=== PATIENT | female | born 1945 | race Caucasian/White ===

== ENCOUNTER → 2023-10-21 10:10 | Outpatient (REF) | payer MEDICARE, OTHER, SELFPAY ==
[2023-10-21 10:53] LABS: % Basophils 0.5 % (0-2); % Eosinophils 1.4 % (0-6); % Immature Granulocytes 0.3 % (0-0.5); % Lymphocytes 26.4 % (20.5-51.1); % Monocytes 7.9 % (1.7-9.3); % Neutrophils 63.5 % (42.2-75.2); Absolute Eosinophils 0.1 10^3/uL (0-0.7); Absolute Monocytes 0.6 10^3/uL (0.1-0.6); Absolute Neutrophils 4.9 10^3/uL (1.4-6.5); Hematocrit 46.8 % (37.0-47.0); Hemoglobin 15.6 g/dL (12.0-16.0); Mean Corp Hgb Conc. 33.3 g/dL (33.0-37.0); Mean Corpuscular Hgb 30.8 pg (27.0-31.0); Mean Corpuscular Volume 92.3 fL (81.0-99.0); Mean Platelet Volume 8.8 fL (7.4-10.4); Nucleated Red Blood Cells % 0 %; Platelet Count 240 10^3/uL (130-400); Red Blood Cell Count 5.07 10^6/uL (4.20-5.40); Red Cell Dist. Width 12.9 % (11.5-14.5); White Blood Cell Count 7.7 10^3/uL (4.8-10.8)
[2023-10-21 11:34] LABS: ALT (SGPT) 16 U/L (0-35); AST (SGOT) 24 U/L (14-36); Albumin 4.2 g/dl (3.5-5.0); Alkaline Phosphatase 63 U/L (38-126); Blood Urea Nitrogen 21 mg/dl (7-17); Calcium 9.7 mg/dl (8.4-10.2); Carbon Dioxide 32 mmol/L (22-30); Chloride 101 mmol/L (98-107); Glucose 82 mg/dl (70-99); HDL Cholesterol 81 mg/dl; LDL Cholesterol, Calculated 122 mg/dl; Potassium 3.9 mmol/L (3.5-5.1); Sodium 142 mmol/L (135-145); Total Bilirubin 1.2 mg/dl (0.2-1.3); Total Cholesterol 220 mg/dl (50-199); Total Protein 7.4 g/dl (6.3-8.2); Triglyceride 85 mg/dl (10-149); Very Low Density Lipoprotein 17 mg/dl (0-30); eGFR > 60.00
[2023-10-21 11:42] LABS: Free T4 1.31 ng/dl (0.78-2.19)
[2023-10-21 11:56] LABS: TSH 1.21 uIU/ml (0.47-4.68)
== END ==
LOC: REG 10:10
PROVIDERS: ATTENDING PHYSICIAN Family Medicine
DX: E03.9 Hypothyroidism, unspecified (principal); I10 Essential (primary) hypertension; R41.3 Other amnesia
CPT/HCPCS: 36415; 80053; 80061; 84439; 84443; 85025

== ENCOUNTER 2023-12-30 15:41 | Inpatient (IN) | payer MEDICARE, OTHER, SELFPAY ==
[2023-12-30] VITALS (8 sets, daily range): BP systolic 98–148; BP diastolic 55–87; BMI 30.6
[2023-12-30 13:17] LABS: % Basophils 0.5 % (0-2); % Eosinophils 0.9 % (0-6); % Immature Granulocytes 0.3 % (0-0.5); % Lymphocytes 36.2 % (20.5-51.1); % Monocytes 6.3 % (1.7-9.3); % Neutrophils 55.8 % (42.2-75.2); Absolute Eosinophils 0.1 10^3/uL (0-0.7); Absolute Lymphocytes 2.1 10^3/uL (1.2-3.4); Absolute Monocytes 0.4 10^3/uL (0.1-0.6); Absolute Neutrophils 3.2 10^3/uL (1.4-6.5); Hematocrit 29.7 % (37.0-47.0); Hemoglobin 9.9 g/dL (12.0-16.0); Mean Corp Hgb Conc. 33.3 g/dL (33.0-37.0); Mean Corpuscular Hgb 31.6 pg (27.0-31.0); Mean Corpuscular Volume 94.9 fL (81.0-99.0); Mean Platelet Volume 8.9 fL (7.4-10.4); Nucleated Red Blood Cells % 0 %; Platelet Count 289 10^3/uL (130-400); Red Blood Cell Count 3.13 10^6/uL (4.20-5.40); Red Cell Dist. Width 14.4 % (11.5-14.5); White Blood Cell Count 5.8 10^3/uL (4.8-10.8)
[2023-12-30 13:30] LABS: ALT (SGPT) 11 U/L (0-35); AST (SGOT) 20 U/L (14-36); Albumin 3.7 g/dl (3.5-5.0); Alkaline Phosphatase 50 U/L (38-126); Blood Urea Nitrogen 13 mg/dl (7-17); Calcium 9.3 mg/dl (8.4-10.2); Carbon Dioxide 26 mmol/L (22-30); Chloride 105 mmol/L (98-107); Glucose 87 mg/dl (70-99); Lipase 77 U/L (23-300); Potassium 3.8 mmol/L (3.5-5.1); Sodium 138 mmol/L (135-145); Total Bilirubin 0.8 mg/dl (0.2-1.3); Total Protein 6.5 g/dl (6.3-8.2); eGFR > 60.00
--- NOTE | 2023-12-30 14:32 | ED.GENMED ---
History of Present Illness
General
Chief Complaint: Abdominal Pain
Source: patient
Time Seen by Provider: 12/30/23 14:20
Travel History
Have you had any contact with someone who has COVID-19?: No
Do you have any symptoms of coronavirus? Fever > 100 degrees, chills, cough, shortness of breath, sore throat, loss of taste or smell, muscle aches, or headache?: No
History of Present Illness
History of Present Illness:
78-year-old female with past medical history of hypertension, hyperlipidemia presenting to the emergency department for evaluation of abdominal pain that has been ongoing for 1 week described to be mainly in the upper part of her abdomen but
radiating downwards into the lower part of her abdomen, seen by primary care provider last week who is treating patient with Macrobid for possible urinary tract reports she did not have any relief with this. She went back to the primary care
provider to be evaluated today and provided a stool sample. Patient notes that her stool yesterday started to look black in color which she did not have before. Patient denies any fevers, chills, rigors, nausea or vomiting. She denies any history
of GI bleeding in the past. She does not take any blood thinning medications, chronic NSAIDs, no history of alcohol use. She does not believe she is ever had an endoscopy before. Patient has no other concerns.
Past History
Past History
ED Past Medical History: HTN and Hypercholesterolemia; Negative IDDM or NIDDM
ED Past Surgical History: and Orthopedic; Negative Cardiac
Patient has exhibited threatening behavior?: No
PSI?: No
Social History
Tobacco: Non-smoker
Alcohol: None
Drug: None
Personal:
Living: with family
Employment: Retired
Family History
Family History: Hypertension
Review of Systems
Review of Systems
All Other Systems: ROS reviewed and negative except as documented in HPI and ROS
Phy Exam
Physical Exam
Physical Exam:
GENERAL: Alert , anxious, tearful and upset
EYE: clear conjunctiva b/l
HEAD: NCAT
ENT: o/p clr, mmm.
CARDIAC: Regular rate and rhythm .
LUNGS: Clear breath sounds bilaterally, no acute respiratory distress, no wheezes/rales/rhonchi
ABDOMEN: Soft, mildly tender within the epigastrium, no r/g, no cvat
Rectal exam: Chaperoned by ED LINH Guillermo: Light black stool, heme positive
NEUROLOGICAL: Alert and oriented
SKIN: Warm and dry, skin intact.
MUSCULOSKELETAL: well perfused.
PSYCH: Normal and appropriate interaction.
Scores
Heart Failure Risk
Heart Failure Risk Score: Not Applicable
Heart Score for Chest Pain Patients
STEMI patient?: Not applicable
Withdrawal Assessment of Alcohol
Withdrawal Assessment Completed?: Not applicable
Course
Orders/Labs/Results
Orders:
Orders
12/30/23 12:48
Electrocardiogram (*1) Urgent
Reason for Study: Abdominal Pain
EKG- Treatment ONCE
12/30/23 12:56
Type+Screen Urgent
CMP [Comprehensive Metabolic Panel] Urgent
Complete Blood Count/With Diff Urgent
Lipase Urgent
12/30/23 14:31
IV Insert/Care/Rem.- Treatment PRN
Pantoprazole 80 mg/100 ml Nss [Protonix] 80 mg in 100 ml IV NOW
Pantoprazole [Protonix IV] 80 mg IV NOW STA
12/30/23 15:12
Admit/Transfer Patient As Directed
Co-Sign Provider:
Level of Care: Inpatient admission
Assign to:: Telemetry
Physician / Group: clark
Diagnosis: Gi blled
Reason for Telemetry: Other
Other Reason for Telemetry: GI bleed
Date to Stop Telemetry: 01/01/24
Time to Stop Telemetry: 11:00
Reason for Hospitalization: GI bleed
Expected length of stay greater than two midnights?: Yes
ELOS- Estimated Length of Stay in days: 3
I certify the patient meets the requirements for IP care: Yes
12/30/23 15:13
Code Status As Directed
Resuscitation Status: Full Code
01/01/24 11:00
DC Protocol for Telemetry ONCE
Abnormal Lab Results
12/30/23
12:56
RBC 3.13 L 10^6/uL
(4.20-5.40)
Hgb 9.9 L g/dL
(12.0-16.0)
Hct 29.7 L %
(37.0-47.0)
MCH 31.6 H pg
(27.0-31.0)
12/30/23 12:56
12/30/23 12:56
Vital Signs
Initial and Last Documented VS:
Initial Vital Signs
Temp Pulse Resp BP Pulse Ox
98.3 F 68 18 109/87 100
12/30/23 12:43 12/30/23 12:43 12/30/23 12:43 12/30/23 12:43 12/30/23 12:43
Last Documented Vital Signs
Temp Pulse Resp BP Pulse Ox
98.3 F 71 17 98/85 100
12/30/23 12:43 12/30/23 15:00 12/30/23 15:15 12/30/23 15:00 12/30/23 14:45
MDM/Problems Addressed
Differential Diagnosis Includes:
GI bleed, anemia, electrolyte disturbance, less concern for an acute surgical complication, mesenteric ischemia
MDM/Problems Addressed:
16 [id number] female presenting to the emergency department for evaluation of abdominal pain, black stool and generally feeling unwell over the last week. On arrival here patient has a noted hemoglobin drop from 15.6-9.9. She has dark stool
that is heme positive. I suspect an upper GI bleed is the reasoning behind her symptoms. No clear source for why she would have this. 2 IVs were started, Protonix bolus and drip ordered. At present time patient does not need any transfusion.
Plan to admit to hospitalist team. Will also notify primary care provider
*Pulse Oximetry
Patient hypoxic: no
*Resident Services Supervisor Interpretation
Rate: normal
Rhythm: sinus
*Critical Care Note
Total Time (30-74mins, 75-104mins- exclusive of procedures): Not Applicable
Data Reviewed
Review of Other/Old Records Reveals: Labs and Records
Source: patient and records
Patient Management
Discussion with other providers: Hospitalist and PCP
Escalation/DeEscalation of care consider admission/obs:
Hospitalist team was notified and accepts for continued evaluation and treatment. Primary care was also notified and is aware.
ED Attending Note
-
Portions of this chart may have been created with voice recognition software.� Occasional wrong word or��sound alike� substitutions may have occurred due to the inherent limitations of voice recognition software.
Discharge Plan
Departure
Patient Disposition: Admit
Date of Disposition: 12/30/23
Time of Disposition: 14:39
Presentation/result/management discussed w/ accepting MD/DO: Hospitalist
Discharge Problem:
GI bleed, Anemia
Prescriptions:
No Action
levothyroxine 25 MCG tablet
25 mcg PO DAILY
latanoprost 1 DROP drops
1 drp BOTH EYES HS
magnesium oxide 400 MG tablet
400 mg PO DAILY
cyanocobalamin (vitamin B-12) 1,000 mcg Tablet
1,000 mcg PO DAILY
calcium carbonate [Calcium 500] 500 mg calcium (1,250 mg) Tablet
500 mg PO DAILY
ibuprofen [Advil] 200 mg Tablet
400 mg PO Q6HPRN PRN (Reason: mild pain)
memantine 5 mg Tablet
5 mg PO DAILY
zinc sulfate 50 mg zinc (220 mg) Capsule
50 mg PO DAILY
Visbiome 112.5 billion cell Capsule
1 cap PO DAILY
turmeric 400 mg Capsule
400 mg PO DAILY
Referrals:
Dwaine Pelaez MD [Family Provider] -
Interventions
Interventions:
*Risk Screen - Suicide Last Done: 12/30/23 15:01
*General Assessment Last Done: 12/30/23 12:43
*Neglect/Abuse Screening Last Done: 12/30/23 15:01
ED- Fall Risk Assessment Last Done: 12/30/23 15:01
*ED COVID-19 Vaccine History Last Done: 12/30/23 12:43
MK-Waliaa-Thdzyvauoz Assessment Last Done: 12/30/23 14:48
Discharge Date and Time
Print Language: MALTESE
[2023-12-30] MEDS: PROTONIX IV 80 MG IV (14:39)
[2023-12-30] MEDS: PROTONIX 100 IV (14:42)
--- NOTE | 2023-12-30 14:48 | HPS.HSE ---
Addendum entered and electronically signed by Nikhil Cheek MD 12/30/23 15:50:
Seen and examined by me independently in collaboration with the nurse practitioner Aamir.
Past medical history/social history/medication/allergies reviewed.
Lab data and imaging data reviewed.
Patient with a current history of treatment of possible UTI with Macrobid presents with upper abdominal pain for a week followed by black stools. She is heme positive black stools in the ER. She is anemic compared to her labs from before. She is
tender in the epigastric area ;no hepatomegaly.LFTs and lipase normal.
Denies any NSAID use. Denies prior history of peptic ulcer disease or GI bleed.
She is currently hemodynamically stable.
Admit to hospital. Keep NPO. Start on IV Protonix drip. Consult GI.Follow H&H closely. Repeat urinalysis to make sure she cleared her UTI.
Patient takes dementia medication but she is alert and oriented to place and the month of the year. She still drives and in fact drove herself to the hospital.Didnt check full MMSE today.
Original Note:
Family Physician
-
Family Physician: Dwaine Pelaez
Chief Complaint
-
abdominal pain associated with black stool
History of Present Illness
78 year old with PMH fot HTN, HLD, heart murmur, hypothyroidism, CVA, memory disorder presented to us with abdominal pain for two weeks. patient was prescribed some medication twice daily for 7 days. Patient started seeing black stools. She was
evaluated by PCP yesterday for follow-up. Patient was continued to have generalized abdominal pain. Denied nausea vomiting diarrhea. Patient denied any headache, dizziness, syncopal episode patient denied fever, chills, chest pain,. Short of
breath. Patient denied dysuria hematuria.
On arrival hemoglobin 9.9. Heme test positive for black stools. Patient initiated on IV Protonix. Admitted for further management
Medical History
Past Medical History
Past Medical History: Reports Other
Additional Past Medical History:
Hypertension
Hyperlipidemia
Heart murmur
Hypothyroidism
CVA
Adjustment disorder
Memory disorder
Mild cognitive impairment
Retinal vasculitis of both eyes
Past Surgical History: Reports Other
Additional Past Surgical History:
Tonsillectomy
Carpal tunnel surgery
Appendectomy
Laminectomy
Social History
Tobacco: Non-smoker
Alcohol: None
Drug: None
Family History
Family History: Not pertinent
Allergies / Home Medications
Allergies reflects when Allergies were last updated in [facility].
Home Medications with original date entered in [facility]
Allergy/Medication List:
Allergies
Allergy/AdvReac Type Severity Reaction Status Date / Time
Sulfa (Sulfonamide Allergy Hives Verified 12/30/23 12:47
Antibiotics)
[Sulfa(Sulfonamide
Antibiotics)]
Home Medications
levothyroxine 25 mcg tablet 25 mcg PO DAILY 10/31/21
latanoprost 0.005 % eye drops 1 drp BOTH EYES HS 11/27/21
magnesium oxide 400 mg PO DAILY 12/16/21
Lactobac no.2-Bifidobac no.1-S. thermo 112.5 billion cell capsule (Visbiome) 1 cap PO DAILY 12/30/23
calcium carbonate 500 mg PO DAILY 12/30/23
cyanocobalamin (vitamin B-12) 1,000 mcg tablet 1,000 mcg PO DAILY 12/30/23
ibuprofen 200 mg tablet (Advil) 400 mg PO Q6HPRN PRN mild pain 12/30/23
memantine 5 mg tablet 5 mg PO DAILY 12/30/23
turmeric 400 mg capsule 400 mg PO DAILY 12/30/23
zinc sulfate 50 mg zinc (220 mg) capsule 50 mg PO DAILY 12/30/23
Review of Systems
-
Constitutional: Reports No Symptoms
EENT: Reports No Symptoms
Respiratory: Reports No Symptoms
Cardiac: Reports No Symptoms
Abdomen/GI: Reports Abdominal Pain and Black Stools
: Reports No Symptoms
Musculoskeletal: Reports No Symptoms
Skin: Reports No Symptoms
Neurological: Reports No Symptoms
Endocrine: Reports No Symptoms
Hematologic/Lymphatic: Reports No Symptoms
Psych: Reports No Symptoms
Physical Exam
Vital Signs
Vital Signs
Temp Pulse Resp BP Pulse Ox
98.3 F 72 16 148/59 100
12/30/23 12:43 12/30/23 14:45 12/30/23 14:45 12/30/23 14:35 12/30/23 14:45
Physical Exam
General: Well Developed, Well Nourished and No Apparent Distress
HEENT: NormoCephalic, Moist mucous membranes and Atraumatic
Respiratory: Clear
Cardiac: S1/S2 and Regular Rhythm; No Murmur or Rub
GI: Soft, Non Tender, Non Distended and Normal Bowel Sounds; No Organomegaly
Rectal: Deferred by Provider
Musculoskeletal: No Clubbing, No Cyanosis and No Edema
Skin: No Rash
Neuro: AO x 3 and Nonfocal/grossly intact
Psych: Calm
Laboratory Results
-
12/30/23 12:56
12/30/23 12:56
Laboratory Results
Total Bilirubin 0.8 mg/dl (0.2-1.3) 12/30/23 12:56
AST 20 U/L (14-36) 12/30/23 12:56
ALT 11 U/L (0-35) 12/30/23 12:56
Alkaline Phosphatase 50 U/L (38-126) 12/30/23 12:56
Lipase 77 U/L (23-300) 12/30/23 12:56
Data Reviewed
-
Lab Data: Labs Reviewed by me
Impression/Plan
-
# Abdominal pain associated with black stool /acute blood loss anemia likely from upper GI bleed
-Heme positive light black stool
-Hemoglobin 9.9
-trend h&h
-IV Protonix
-npo
-GI consult
-Colonoscopy 07/24 with impression of ileum was normal.
- Five 1 to 2 mm polyps in the transverse colon, in
the ascending colon and in the cecum, removed with a
jumbo cold forceps. Resected and retrieved.
- Diverticulosis in the sigmoid colon.
- Internal hemorrhoids.
# Hypothyroidism
-Levothyroxine continued
# Mild cognitive impairment
# Memory loss
-Memantine continued
# DVT prophylaxis
-SCD
# CODE STATUS
-Full code
[2023-12-30 20:26] LABS: Hemoglobin 10.8 g/dL (12.0-16.0)
--- NOTE | 2023-12-30 20:50 | CON.GI ---
Consultation
-
Date/Time Consultation Requested: 12/30/23
Date/Time Consultation Performed: 12/30/23
Requesting Provider: Dr. Cheek
Performing Provider:
Reason for Consultation: melena, anemia
Medical History
Chief Complaint / HPI
Chief Complaint: melena, fatigue
History of Present Illness:
This is a pleasant 78-year-old female with past medical history of PUD, colon polyps, hypertension hyperlipidemia, heart murmur, hypothyroidism, CVA, mild dementia who recently was having symptoms of UTI was seen by her PCP and started on Macrobid.
She says that she was also having lower abdominal pain and epigastric pain with fatigue for past 1 week and a couple of days ago she had an episode of black stool. She had reported this to her PCP yesterday and was told to submit a stool Hemoccult
card she submitted the card in the office but was still feeling fatigue and presented to the emergency room and was noted to have a hemoglobin of 9.9 down from 15.6 on 10/21/2023. She says that she has been taking Phani aspirin as needed for joint
pains but denies any other NSAID use. She does have a prior history of peptic ulcer disease and was seen Dr. Arias and had endoscopy in 2012 and 2013. Her last colonoscopy was on 07/02/[address] Jurado.
Past Medical History
Past Medical History: Other (Hypertension, Hyperlipidemia, Heart murmur, Hypothyroidism, CVA, Adjustment disorder, Memory disorder, Mild cognitive impairment, Retinal vasculitis of both eyes )
Past Surgical History: Other (onsillectomy, , Carpal tunnel surgery, Appendectomy, Laminectomy)
Social History
Tobacco: Non-Smoker
Alcohol: None
Drug: None
Family History
Family History: Reviewed & Not Pertinent
Allergies / Home Medications
Allergy/AdvReac Type Severity Reaction Status Date / Time
Sulfa (Sulfonamide Allergy Hives Verified 12/30/23 12:47
Antibiotics)
[Sulfa(Sulfonamide
Antibiotics)]
�Medication �Instructions �Recorded
levothyroxine 25 mcg tablet 25 mcg PO DAILY 10/31/21
latanoprost 0.005 % eye drops 1 drp BOTH EYES HS 11/27/21
magnesium oxide 400 mg PO DAILY 12/16/21
Lactobac no.2-Bifidobac no.1-S. 1 cap PO DAILY 12/30/23
thermo 112.5 billion cell capsule
(Visbiome)
calcium carbonate 500 mg PO DAILY 12/30/23
cyanocobalamin (vitamin B-12) 1,000 mcg PO DAILY 12/30/23
1,000 mcg tablet
ibuprofen 200 mg tablet (Advil) 400 mg PO Q6HPRN PRN mild pain 12/30/23
memantine 5 mg tablet 5 mg PO DAILY 12/30/23
turmeric 400 mg capsule 400 mg PO DAILY 12/30/23
zinc sulfate 50 mg zinc (220 mg) 50 mg PO DAILY 12/30/23
capsule
Review of Systems
-
All other systems: A 12 pt ROS was Negative except as stated above in HPI
Vital Signs
Temp Pulse Resp BP Pulse Ox
98.3 F 68 14 144/55 97
12/30/23 12:43 12/30/23 18:15 12/30/23 18:15 12/30/23 18:00 12/30/23 18:15
Physical Exam
Exam
General: No Apparent Distress
HEENT: Normocephalic
Respiratory: Clear
Cardiac: S1/S2 and Murmur (systolic murmur)
GI: Soft, Non Distended, Normal Bowel Sounds and Tender (epigastric)
Musculoskeletal: No Clubbing
Skin: Warm
Neuro: Awake, Alert and Oriented
Psych: Calm
Results
WBC 5.8 10^3/uL (4.8-10.8) 12/30/23 12:56
Hgb 10.8 g/dL (12.0-16.0) L 12/30/23 20:16
Hct 31.0 % (37.0-47.0) L 12/30/23 20:16
MCV 94.9 fL (81.0-99.0) 12/30/23 12:56
Plt Count 289 10^3/uL (130-400) 12/30/23 12:56
Absolute Neuts (auto) 3.2 10^3/uL (1.4-6.5) 12/30/23 12:56
Sodium 138 mmol/L (135-145) 12/30/23 12:56
Potassium 3.8 mmol/L (3.5-5.1) 12/30/23 12:56
Chloride 105 mmol/L (98-107) 12/30/23 12:56
Carbon Dioxide 26 mmol/L (22-30) 12/30/23 12:56
BUN 13 mg/dl (7-17) 12/30/23 12:56
Creatinine 0.6 mg/dL (0.6-1.0) 12/30/23 12:56
Calcium 9.3 mg/dl (8.4-10.2) 12/30/23 12:56
Total Bilirubin 0.8 mg/dl (0.2-1.3) 12/30/23 12:56
AST 20 U/L (14-36) 12/30/23 12:56
ALT 11 U/L (0-35) 12/30/23 12:56
Alkaline Phosphatase 50 U/L (38-126) 12/30/23 12:56
Lipase 77 U/L (23-300) 12/30/23 12:56
Diagnostic Image Results:
Prior GI Procedures:
EGD: 10/10/2013 Impression: - Normal esophagus.
- Normal stomach. Biopsied.
- Duodenal deformity. Biopsied.
Colonoscopy: Impression: - The examined portion of the ileum was normal.
- Five 1 to 2 mm polyps in the transverse colon, in
the ascending colon and in the cecum, removed with a
jumbo cold forceps. Resected and retrieved.
- Diverticulosis in the sigmoid colon.
- Internal hemorrhoids.
Assessment / Plan
-
1. Acute blood loss anemia with melena a few days prior to admission with epigastric discomfort most likely has peptic ulcer disease versus esophagitis or gastritis she does take a Phani aspirin as needed but denies excessive recent use of NSAIDs.
Will schedule her for endoscopy tomorrow she says her last episode of black stool was about 4 to 5 days ago. She has been on started on Protonix drip continue to monitor hemoglobin if she has any active bleeding endoscopy sooner.
-
-
Thank you for consultation and allowing me to participate in the patient's care. Please call the communications department chairperson GI physician during the after hours with any questions or concerns.
[2023-12-30] MEDS: NSS 1000 IV (22:09)
[2023-12-30] MEDS: XALATAN OPHTHALMIC SOLUTION 1 DROP BOTH EYES (22:11)
[2023-12-31] VITALS (7 sets, daily range): BP systolic 118–158; BP diastolic 51–74
[2023-12-31] MEDS: PROTONIX 100 IV (01:30)
[2023-12-31] MEDS: SYNTHROID PO (06:16)
[2023-12-31 06:47] LABS: Hemoglobin 9.5 g/dL (12.0-16.0); Mean Corp Hgb Conc. 33.9 g/dL (33.0-37.0); Mean Corpuscular Hgb 31.7 pg (27.0-31.0); Mean Corpuscular Volume 93.3 fL (81.0-99.0); Mean Platelet Volume 8.7 fL (7.4-10.4); Platelet Count 251 10^3/uL (130-400); Red Cell Dist. Width 14.6 % (11.5-14.5); White Blood Cell Count 4.5 10^3/uL (4.8-10.8)
[2023-12-31 06:55] LABS: Blood Urea Nitrogen 11 mg/dl (7-17); Calcium 8.8 mg/dl (8.4-10.2); Carbon Dioxide 24 mmol/L (22-30); Chloride 111 mmol/L (98-107); Estimated Creatinine Clearance 70 ml/min; Glucose 82 mg/dl (70-99); Sodium 141 mmol/L (135-145); eGFR > 60.00
[2023-12-31 07:01] LABS: Potassium 3.5 mmol/L (3.5-5.1)
[2023-12-31] MEDS: MAG-TAB SR 84 MG PO (07:41)
[2023-12-31] MEDS: NAMENDA 5 MG PO (07:41)
[2023-12-31] MEDS: NSS 1000 IV ×2 (07:44→22:05)
--- NOTE | 2023-12-31 11:19 | W.PN.HOSP.TC ---
Today's Communication/Plan
-
EGD
DC planning based on EGD findings
Assessment / Plan
Assessment / Plan
# Abdominal pain associated with black stool /acute blood loss anemia likely from upper GI bleed
-Heme positive light black stool
-Hemoglobin Stable since admission
-trend h&h
-cw IV Protonix
- For EGD today
-Colonoscopy 07/24 with impression of ileum was normal.
- Five 1 to 2 mm polyps in the transverse colon, in
the ascending colon and in the cecum, removed with a
jumbo cold forceps. Resected and retrieved.
- Diverticulosis in the sigmoid colon.
- Internal hemorrhoids.
# Hypothyroidism
-Levothyroxine continued
# Mild cognitive impairment
# Memory loss
-Memantine continued
# DVT prophylaxis
-SCD
# CODE STATUS
-Full code
Anticipated Discharge: Today
Subjective/Interval History
-
Date of Service: December 31, 2023
somewhat improved abdominal pain. No nausea vomiting.
Objective Data
-
Labs:
Laboratory Results
12/31/23 12/31/23
06:16 13:00
WBC 4.5 L
Hgb 9.5 L Pending
Hct 28.0 L Pending
Plt Count 251
Sodium 141
Potassium 3.5
Chloride 111 H
Carbon Dioxide 24
BUN 11
Creatinine 0.7
Glucose 82
Calcium 8.8
Vital Signs:
Vital Signs
Temp Pulse Resp BP Pulse Ox
98.4 F 65 16 133/61 99
12/31/23 08:27 12/31/23 08:27 12/31/23 08:27 12/31/23 08:27 12/31/23 08:27
Review of Systems
-
Respiratory: Denies Trouble Breathing
Cardiac: Denies Chest Pain
Neuro: Denies Dizzy
Physical Exam
-
General: No Apparent Distress
Cardiac: Regular Rhythm and S1/S2
GI: Soft, Nondistended, Normal Bowel Sounds and Tender (Mild epigastric area tenderness without rebound or guarding.)
Neuro: Awake, Alert and Oriented
Psych: Calm and Confused (mild - she seems to have issues in remembering recent health issues )
Data Reviewed
-
Labs: Labs Reviewed by me
[2023-12-31] MEDS: PROTONIX IV (11:55)
[2023-12-31 13:08] LABS: Hematocrit 28.9 % (37.0-47.0); Hemoglobin 10.2 g/dL (12.0-16.0)
--- NOTE | 2023-12-31 14:26 | CM ---
Met with patient at bedside; initial assessment and case management consult completed
Pharmacy verified: [facility]
Signed IMM on the chart
Patient reported she lives alone; multilevel home; 1 step to enter; 10 steps between floors; inside railings on stairs; powder room on the 1st floor; 2nd floor bath has walk-in shower, grab bar, and seat
PLOF: patient reported she is independent with ambulation, stairs, and ADLs; drives, active, supportive family
Advance Directive information packet provided
Transportation: drove self to hospital and plans to drive self home
Plan: discharge to home when stable; no needs anticipated
[2023-12-31] MEDS: PROTONIX 40 MG PO (20:34)
[2023-12-31] MEDS: XALATAN OPHTHALMIC SOLUTION 1 DROP BOTH EYES (21:31)
[2024-01-01 03:16] VITALS: BP 149/68
[2024-01-01] MEDS: SYNTHROID 25 MCG PO (06:04)
[2024-01-01 06:47] LABS: Hematocrit 28.7 % (37.0-47.0); Hemoglobin 9.9 g/dL (12.0-16.0); Mean Corp Hgb Conc. 34.5 g/dL (33.0-37.0); Mean Corpuscular Hgb 31.9 pg (27.0-31.0); Mean Corpuscular Volume 92.6 fL (81.0-99.0); Mean Platelet Volume 8.8 fL (7.4-10.4); Platelet Count 273 10^3/uL (130-400); Red Cell Dist. Width 14.6 % (11.5-14.5); White Blood Cell Count 4.5 10^3/uL (4.8-10.8)
[2024-01-01 07:11] LABS: Blood Urea Nitrogen 8 mg/dl (7-17); Calcium 8.6 mg/dl (8.4-10.2); Carbon Dioxide 25 mmol/L (22-30); Chloride 111 mmol/L (98-107); Estimated Creatinine Clearance 81 ml/min; Glucose 86 mg/dl (70-99); Potassium 3.9 mmol/L (3.5-5.1); Sodium 141 mmol/L (135-145); eGFR > 60.00
[2024-01-01 07:45] VITALS: BP 142/75
[2024-01-01] MEDS: PROTONIX 40 MG PO (08:21)
[2024-01-01] MEDS: MAG-TAB SR 84 MG PO (08:21)
[2024-01-01] MEDS: NAMENDA 5 MG PO (08:21)
--- NOTE | 2024-01-01 09:18 | W.PN.GI.CBS2 ---
Today's Communication / Plan
-
Please see assessment and plan for details.
Assessment / Plan
-
1. Melena: Secondary to duodenal ulcer, overall clean-based, no further signs of bleeding, hemoglobin stable, overall doing well. At this point is okay to DC from GI standpoint with PPI twice daily, avoiding NSAIDs. Will follow-up on pathology to
rule out H. pylori, and plan repeat EGD in 6 weeks to assure healing. We will sign off for now, please go back with any further questions.
Subjective
Subjective
Date of Service: January 01, 2024
Patient feeling well, no abdominal pain, tolerating diet without difficulty, no bowel movements.
Objective
Data Reviewed
Laboratory Data:
Laboratory Results
01/01/24 05:56
01/01/24 05:56
Laboratory Results
Total Bilirubin 0.8 mg/dl (0.2-1.3) 12/30/23 12:56
AST 20 U/L (14-36) 12/30/23 12:56
ALT 11 U/L (0-35) 12/30/23 12:56
Alkaline Phosphatase 50 U/L (38-126) 12/30/23 12:56
Lipase 77 U/L (23-300) 12/30/23 12:56
Vital Signs and I&O:
Vital Signs
Temp Pulse Resp BP Pulse Ox
97.8 F 71 16 142/75 99
01/01/24 07:45 01/01/24 07:45 01/01/24 07:45 01/01/24 07:45 01/01/24 07:45
I&O
12/31/23 01/01/24 01/02/24
06:59 06:59 06:59
Intake Total 1480 / 1480
Balance 1480 / 1480
Physical Exam
Physical Exam
General: NAD
Abdomen: normal bowel sounds, soft, no tenderness, no masses or bruits, no ascites
[2024-01-01 11:13] VITALS: BP 141/70
--- NOTE | 2024-01-01 11:26 | PTOTSP ---
Patient is independent with functional mobility. No skilled PT needs at this time. Will D/C PT services.
--- NOTE | 2024-01-01 11:54 | W.PN.HOSP.TC ---
Today's Communication/Plan
-
DC
Assessment / Plan
Assessment / Plan
# Abdominal pain associated with black stool /acute blood loss anemia Secondary to upper GI bleed from duodenal ulcer.
-Hemoglobin Stable since admission
- EGD report and recommendation noted.
-Continue with Protonix twice daily and follow-up with GI in 6 weeks. Patient advised to avoid all kinds of NSAIDs including [id number] Aspirin she was using.
# Hypothyroidism
-Levothyroxine continued
# Mild cognitive impairment
# Memory loss
-Memantine continued
# DVT prophylaxis
-SCD
# CODE STATUS
-Full code
Tolerating diet.
Medically stable for discharge.
Anticipated Discharge: Today
Subjective/Interval History
-
Date of Service: January 01, 2024
No further abdominal pain. Tolerating diet.
Objective Data
-
Labs:
Laboratory Results
01/01/24
05:56
WBC 4.5 L
Hgb 9.9 L
Hct 28.7 L
Plt Count 273
Sodium 141
Potassium 3.9
Chloride 111 H
Carbon Dioxide 25
BUN 8
Creatinine 0.6
Glucose 86
Calcium 8.6
Vital Signs:
Vital Signs
Temp Pulse Resp BP Pulse Ox
97.8 F 71 16 142/75 99
01/01/24 07:45 01/01/24 07:45 01/01/24 07:45 01/01/24 07:45 01/01/24 07:45
I&O
12/31/23 01/01/24 01/02/24
06:59 06:59 06:59
Intake Total 1480 / 1480
Balance 1480 / 1480
Review of Systems
-
Respiratory: Denies Trouble Breathing
Cardiac: Denies Chest Pain
Neuro: Denies Dizzy
Physical Exam
-
Respiratory: Clear to Auscultation
Cardiac: Regular Rhythm and S1/S2
GI: Soft and Nontender
Neuro: Awake, Alert and Oriented
Data Reviewed
-
Labs: Labs Reviewed by me
--- NOTE | 2024-01-01 11:59 | W.DS.TRANS ---
DC Summary - Line Analyst
-
Discharge Instructions:
Discharge Diagnosis/Procedures Duodenal ulcer with GI bleed and anemia
Diet Regular
Activity As tolerated
Driving Restrictions As prior to admission
Bathing Restrictions None
Blood Work CBC blood work in 1-2 weeks . Arrange through
your PCP
Instructions:
Stand-Alone Forms:
Changes to Home Medications: Yes
Discharge Medications:
DC Medications w/original date entered in [employer]
levothyroxine 25 mcg tablet 25 mcg PO DAILY Thyroid 10/31/21
latanoprost 0.005 % eye drops 1 drp BOTH EYES HS Eye Condition 11/27/21
magnesium oxide 400 mg PO DAILY Electrolyte Repletion 12/16/21
Lactobac no.2-Bifidobac no.1-S. thermo 112.5 billion cell capsule (Visbiome) 1 cap PO DAILY probiotic 12/30/23
calcium carbonate 500 mg PO DAILY Supplement 12/30/23
cyanocobalamin (vitamin B-12) 1,000 mcg tablet 1,000 mcg PO DAILY Supplement 12/30/23
memantine 5 mg tablet 5 mg PO DAILY dementia 12/30/23
turmeric 400 mg capsule 400 mg PO DAILY Supplement 12/30/23
zinc sulfate 50 mg zinc (220 mg) capsule 50 mg PO DAILY Supplement 12/30/23
pantoprazole 40 mg tablet,delayed release 40 mg PO BID #60 tabs 01/01/24
Home Medication Changes
New med - protonix
Pending Results: Yes (Biopsies from EGD)
--- NOTE | 2024-01-01 11:59 | W.DCSUMMARY ---
Discharge Summary
Discharge Data
Date of Admission: 12/30/23
Date of Discharge: 01/01/24
-
Pending Results: Yes (Biopsies from EGD)
Hospital Course
primary diagnosis:
Duodenal ulcer causing gastrointestinal bleed and anemia
Secondary diagnosis:
Hypothyroidism
Hospital course: mild cognitive impairment
presented with abdominal pain and noticing black stool. She was heme positive stool. She was anemic compared to the baseline. She had no further active bleeding in the hospital and her H&H remained stable. She was using NSAIDs [id number]
aspirin . She has mild cognitive impairment. Endoscopy revealed a duodenal ulcer with no active bleeding. Biopsy samples were taken. Advised PPI twice a day going forward and get repeat endoscopy in 6 weeks. Discharge hemoglobin was 9.9 which
was stable.
Consultants on board:
GI - Panchito Balderas
Discharge Plan
-
Patient Disposition: Home (Routine Discharge)
Discharge Diagnosis/Procedures: Duodenal ulcer with GI bleed and anemia
Diet: Regular
Activity: As tolerated
Driving Restrictions: As prior to admission
Bathing Restrictions: None
Blood Work: CBC blood work in 1-2 weeks . Arrange through your PCP
Referrals:
Dwaine Pelaez MD [Family Provider] - in less than 1 week
Julita Calvillo MD [Active] - in six weeks (For repeat endoscopy)
Prescriptions:
New
pantoprazole 40 mg Tablet,Delayed Release (Dr/Ec)
40 mg PO BID Qty: 60 0RF
Continued
levothyroxine 25 MCG tablet
25 mcg PO DAILY
latanoprost 1 DROP drops
1 drp BOTH EYES HS
magnesium oxide 400 MG tablet
400 mg PO DAILY
cyanocobalamin (vitamin B-12) 1,000 mcg Tablet
1,000 mcg PO DAILY
calcium carbonate 500 mg calcium (1,250 mg) Tablet
500 mg PO DAILY
memantine 5 mg Tablet
5 mg PO DAILY
zinc sulfate 50 mg zinc (220 mg) Capsule
50 mg PO DAILY
Visbiome 112.5 billion cell Capsule
1 cap PO DAILY
turmeric 400 mg Capsule
400 mg PO DAILY
Discontinued
ibuprofen [Advil] 200 mg Tablet
400 mg PO Q6HPRN PRN (Reason: mild pain)
Discharge Orders:
Discharge Patient (As Directed); Ordered 01/01/24
Ordered By: Nikhil Cheek
Discharge Date and Time
Print Language: BELARUSIAN
[2024-01-01 12:28] VITALS: BP 133/78
== END 2024-01-01 14:16 | disposition home or self-care (01) | DRG 378 ==
LOC: 3 WEST ACU 15:41
PROVIDERS: Registered Nurse; ADMITTING PHYSICIAN Internal Medicine; CONSULT PHYSICIAN Internal Medicine Gastroenterology; EMERGENCY PHYSICIAN Student in an Organized Health Care Education/Training Program; FAMILY PHYSICIAN Family Medicine
DX: K26.4 Chronic or unspecified duodenal ulcer with hemorrhage (principal); D62 Acute posthemorrhagic anemia; K63.5 Polyp of colon; K57.30 Diverticulosis of large intestine without perforation or abscess without bleeding; K64.8 Other hemorrhoids; E03.9 Hypothyroidism, unspecified
CPT/HCPCS: 88305; 80048; 80053; 83690; 85014; 85018; 85025; 85027; 86850; 86900; 86901; 88342; 93005; 97162; 99285

== ENCOUNTER → 2024-01-11 08:14 | Outpatient (REF) | payer MEDICARE, OTHER, SELFPAY ==
[2024-01-11 09:23] LABS: % Basophils 1.1 % (0-2); % Eosinophils 1.3 % (0-6); % Immature Granulocytes 0.3 % (0-0.5); % Lymphocytes 42.1 % (20.5-51.1); % Monocytes 6.9 % (1.7-9.3); % Neutrophils 48.3 % (42.2-75.2); Absolute Eosinophils 0.1 10^3/uL (0-0.7); Absolute Lymphocytes 1.6 10^3/uL (1.2-3.4); Absolute Monocytes 0.3 10^3/uL (0.1-0.6); Absolute Neutrophils 1.8 10^3/uL (1.4-6.5); Hematocrit 33.5 % (37.0-47.0); Hemoglobin 10.6 g/dL (12.0-16.0); Mean Corp Hgb Conc. 31.6 g/dL (33.0-37.0); Mean Corpuscular Hgb 30.8 pg (27.0-31.0); Mean Corpuscular Volume 97.4 fL (81.0-99.0); Mean Platelet Volume 8.5 fL (7.4-10.4); Nucleated Red Blood Cells % 0 %; Platelet Count 277 10^3/uL (130-400); Red Blood Cell Count 3.44 10^6/uL (4.20-5.40); Red Cell Dist. Width 14.2 % (11.5-14.5); White Blood Cell Count 3.8 10^3/uL (4.8-10.8)
== END ==
LOC: RCS 08:14
PROVIDERS: ATTENDING PHYSICIAN Nurse Practitioner Family; REFERRING PHYSICIAN Family Medicine
DX: R42 Dizziness and giddiness (principal); K25.0 Acute gastric ulcer with hemorrhage
CPT/HCPCS: 36415; 85025; 93306

== ENCOUNTER → 2024-02-16 06:31 | Day surgery (SDC) | payer MEDICARE, OTHER, SELFPAY | LOC: GI 06:31 | PROVIDERS: ATTENDING PHYSICIAN Internal Medicine Gastroenterology; FAMILY PHYSICIAN Family Medicine | DX: K22.2 Esophageal obstruction (principal); K31.89 Other diseases of stomach and duodenum; Q39.9 Congenital malformation of esophagus, unspecified; Z87.11 Personal history of peptic ulcer disease; Z09 Encounter for follow-up examination after completed treatment for conditions other than malignant neoplasm | CPT/HCPCS: 43235 ==

== ENCOUNTER → 2024-02-23 10:28 | Outpatient (REF) | payer MEDICARE, OTHER, SELFPAY | LOC: WDC 10:28 | PROVIDERS: ATTENDING PHYSICIAN Obstetrics & Gynecology Gynecology; FAMILY PHYSICIAN Family Medicine | DX: Z12.31 Encounter for screening mammogram for malignant neoplasm of breast (principal); M85.89 Other specified disorders of bone density and structure, multiple sites | CPT/HCPCS: 77063; 77067; 77080 ==

== ENCOUNTER 2024-05-09 09:11 | Emergency (ER) | payer MEDICARE, OTHER, SELFPAY ==
[2024-05-09 09:21] VITALS: BP 125/91
--- NOTE | 2024-05-09 11:29 | ED.GENMED ---
History of Present Illness
General
Chief Complaint: Musculo-Skeletal Complaint
Source: patient
Time Seen by Provider: 05/09/24 11:21
History of Present Illness
History of Present Illness:
78-year-old female with past medical history of hypertension hyperlipidemia presenting to the emergency department for evaluation of a couple of days of right hand/wrist pain and right foot pain. Patient states she believes that while doing yoga
this was exacerbated and has had persistent pain since. Denies any direct trauma or injury. Denies any previous history of injury or surgery. She reports no other concerns at this time
Past History
Past History
ED Past Medical History: HTN and Hypercholesterolemia; Negative IDDM or NIDDM
ED Past Surgical History: and Orthopedic; Negative Cardiac
Patient has exhibited threatening behavior?: No
PSI?: No
Social History
Tobacco: Non-smoker
Alcohol: None
Drug: None
Personal:
Living: with family
Employment: Retired
Family History
Family History: Hypertension
Review of Systems
Review of Systems
All Other Systems: ROS reviewed and negative except as documented in HPI and ROS
Phy Exam
Physical Exam
Physical Exam:
GENERAL: Alert , in no apparent distress
EYE: conjunctiva clear
Head: Normocephalic atraumatic
NECK: Supple,
ENT: mmm.
LUNGS: no acute respiratory distress
NEUROLOGICAL: Alert and oriented
SKIN: Warm and dry, skin intact.
MUSCULOSKELETAL: Right hand/wrist - no obvious deformity, erythema, ecchymosis, abrasions/laceration. Mild STS over distal wrist. FROM with minimal pain, no focal areas of ttp. Easily palpable radial pulse. Remainder of extremity WNL. Right
foot/ankle - no obvious deformity, erythema, ecchymosis, abrasions/laceration. No focal areas of tenderness to palpation but patient states the midfoot is what is most tender when ambulating. Easily palpable pedal and tibial pulse. Cap refill
less than 2 seconds. Sensation grossly intact to light touch.
PSYCH: Normal and appropriate interaction.
Scores
Heart Failure Risk
Heart Failure Risk Score: Not Applicable
Heart Score for Chest Pain Patients
STEMI patient?: Not applicable
Withdrawal Assessment of Alcohol
Withdrawal Assessment Completed?: Not applicable
Course
Orders/Labs/Results
Orders:
Orders
05/09/24 09:25
Foot, Right 3 View [CR Foot - Right Min 3 Views] Urgent
Comment:
Reason For Exam: pain
05/09/24 09:27
Wrist, Right 3 Views [CR Wrist - Right Min 3 Views] Urgent
Comment:
Reason For Exam: pain after a fall
Vital Signs
Initial and Last Documented VS:
Initial Vital Signs
Temp Pulse Resp BP Pulse Ox
97.8 F 79 18 125/91 99
05/09/24 09:21 05/09/24 09:21 05/09/24 09:21 05/09/24 09:21 05/09/24 09:21
Last Documented Vital Signs
Temp Pulse Resp BP Pulse Ox
97.8 F 79 18 125/91 99
05/09/24 09:21 05/09/24 09:21 05/09/24 09:21 05/09/24 09:21 05/09/24 09:21
MDM/Problems Addressed
Differential Diagnosis Includes:
Sprain, stress fracture, arthritis, tendinitis
MDM/Problems Addressed:
78-year-old female presenting to the emergency department for evaluation of atraumatic right hand/wrist and right foot pain. No specific injury but patient states she believes doing yoga aggravated the symptoms. Extremities are warm and
well-perfused and neurovascularly intact. X-rays were ordered in triage and they show degenerative changes/osteoarthritis. Provide patient with information for orthopedics. NSAIDs/Tylenol and ice as needed for pain. Stable for discharge home.
*Radiology
Radiology exam reviewed: radiology read reviewed
*Pulse Oximetry
Patient hypoxic: no
*Critical Care Note
Total Time (30-74mins, 75-104mins- exclusive of procedures): Not Applicable
ED Attending Note
-
Portions of this chart may have been created with voice recognition software.� Occasional wrong word or��sound alike� substitutions may have occurred due to the inherent limitations of voice recognition software.
Discharge Plan
Departure
Patient Disposition: Home (Routine Discharge)
Date of Disposition: 05/09/24
Time of Disposition: 11:29
Patient with high blood pressure during this ER visit?: No
Discharge Problem:
Osteoarthritis of right wrist, Osteoarthritis of foot, right
Instructions: Osteoarthritis
Prescriptions:
No Action
levothyroxine 25 MCG tablet
25 mcg PO DAILY
latanoprost 1 DROP drops
1 drp BOTH EYES HS
magnesium oxide 400 MG tablet
400 mg PO DAILY
cyanocobalamin (vitamin B-12) 1,000 mcg Tablet
1,000 mcg PO DAILY
calcium carbonate 500 mg calcium (1,250 mg) Tablet
500 mg PO DAILY
memantine 5 mg Tablet
5 mg PO DAILY
zinc sulfate 50 mg zinc (220 mg) Capsule
50 mg PO DAILY
Visbiome 112.5 billion cell Capsule
1 cap PO DAILY
turmeric 400 mg Capsule
400 mg PO DAILY
pantoprazole 40 mg Tablet,Delayed Release (Dr/Ec)
40 mg PO BID Qty: 60 0RF
Referrals:
Skylar Hemphill I., DO [Active] - (Orthopedics)
Interventions
Interventions:
*Risk Screen - Suicide Last Done: 05/09/24 09:21
Discharge Date and Time
Print Language: TUNISIAN
== END 2024-05-09 11:54 | disposition home or self-care (01) ==
LOC: EMR 09:11
PROVIDERS: EMERGENCY PHYSICIAN Emergency Medicine; FAMILY PHYSICIAN Family Medicine
DX: M19.031 Primary osteoarthritis, right wrist (principal); M19.071 Primary osteoarthritis, right ankle and foot; I10 Essential (primary) hypertension; E78.00 Pure hypercholesterolemia, unspecified; Z82.49 Family history of ischemic heart disease and other diseases of the circulatory system
CPT/HCPCS: 99283; 73110; 73630

== ENCOUNTER 2024-05-23 14:18 | Emergency (ER) | payer OTHER, SELFPAY ==
[2024-05-23 14:40] VITALS: BP 163/98
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
[2024-05-23 16:30] VITALS: BP 144/88
== END 2024-05-23 16:31 | disposition home or self-care (01) ==
LOC: EMR 14:18
PROVIDERS: EMERGENCY PHYSICIAN Emergency Medicine; FAMILY PHYSICIAN Family Medicine
DX: R07.89 Other chest pain (principal); S50.812A Abrasion of left forearm, initial encounter; S50.811A Abrasion of right forearm, initial encounter; Y92.410 Unspecified street and highway as the place of occurrence of the external cause; I10 Essential (primary) hypertension; E78.00 Pure hypercholesterolemia, unspecified; E03.9 Hypothyroidism, unspecified; Z82.49 Family history of ischemic heart disease and other diseases of the circulatory system
CPT/HCPCS: 99283; 71046; 73110; 73130; 93005

== ENCOUNTER → 2024-09-09 10:14 | Outpatient (REF) | payer MEDICARE, OTHER, SELFPAY ==
[2024-09-09 11:34] LABS: % Basophils 0.8 % (0-2); % Eosinophils 1.1 % (0-6); % Immature Granulocytes 0.2 % (0-0.5); % Monocytes 7.5 % (1.7-9.3); % Neutrophils 57.4 % (42.2-75.2); Absolute Basophils 0.1 10^3/uL (0-0.2); Absolute Eosinophils 0.1 10^3/uL (0-0.7); Absolute Monocytes 0.5 10^3/uL (0.1-0.6); Absolute Neutrophils 3.5 10^3/uL (1.4-6.5); Hematocrit 42.6 % (37.0-47.0); Hemoglobin 13.8 g/dL (12.0-16.0); Mean Corp Hgb Conc. 32.4 g/dL (33.0-37.0); Mean Corpuscular Hgb 29.5 pg (27.0-31.0); Mean Platelet Volume 8.9 fL (7.4-10.4); Nucleated Red Blood Cells % 0 %; Platelet Count 259 10^3/uL (130-400); Red Blood Cell Count 4.68 10^6/uL (4.20-5.40); Red Cell Dist. Width 14.6 % (11.5-14.5); White Blood Cell Count 6.2 10^3/uL (4.8-10.8)
[2024-09-09 11:54] LABS: ALT (SGPT) 13 U/L (0-35); AST (SGOT) 21 U/L (14-36); Albumin 3.9 g/dl (3.5-5.0); Alkaline Phosphatase 66 U/L (38-126); Blood Urea Nitrogen 22 mg/dl (7-17); Calcium 9.2 mg/dl (8.4-10.2); Carbon Dioxide 35 mmol/L (22-30); Chloride 103 mmol/L (98-107); Glucose 62 mg/dl (70-99); HDL Cholesterol 76 mg/dl; LDL Cholesterol, Calculated 102 mg/dl; Sodium 141 mmol/L (135-145); Total Cholesterol 206 mg/dl (50-199); Total Protein 7.2 g/dl (6.3-8.2); Triglyceride 141 mg/dl (10-149); Very Low Density Lipoprotein 28 mg/dl (0-30); eGFR > 60.00
[2024-09-09 12:08] LABS: Free T4 1.28 ng/dl (0.78-2.19)
[2024-09-09 12:22] LABS: TSH 1.28 uIU/ml (0.47-4.68)
[2024-09-09 12:41] LABS: Vitamin B12 440 pg/ml (239-931)
== END ==
LOC: REG 10:14
PROVIDERS: ATTENDING PHYSICIAN Family Medicine
DX: I10 Essential (primary) hypertension (principal); E78.00 Pure hypercholesterolemia, unspecified; E03.9 Hypothyroidism, unspecified; R41.3 Other amnesia; E53.8 Deficiency of other specified B group vitamins
CPT/HCPCS: 36415; 80053; 80061; 82607; 84439; 84443; 85025

== ENCOUNTER → 2025-03-13 10:10 | Outpatient (REF) | payer MEDICARE, OTHER, SELFPAY ==
[2025-03-13 11:56] LABS: Hematocrit 42.0 % (37.0-47.0); Hemoglobin 13.9 g/dL (12.0-16.0); Mean Corp Hgb Conc. 33.1 g/dL (33.0-37.0); Mean Corpuscular Volume 92.3 fL (81.0-99.0); Nucleated Red Blood Cells % 0 %; Platelet Count 246 10^3/uL (130-400); Red Cell Dist. Width 14.0 % (11.5-14.5)
[2025-03-13 12:34] LABS: ALT (SGPT) 12 U/L (0-35); AST (SGOT) 20 U/L (14-36); Albumin 4.1 g/dl (3.5-5.0); Alkaline Phosphatase 45 U/L (38-126); Blood Urea Nitrogen 19 mg/dl (7-17); Calcium 9.4 mg/dl (8.4-10.2); Carbon Dioxide 31 mmol/L (22-30); Chloride 106 mmol/L (98-107); Glucose 70 mg/dl (70-99); Potassium 4.2 mmol/L (3.5-5.1); Sodium 143 mmol/L (135-145); Total Protein 7.1 g/dl (6.3-8.2); eGFR > 60.00
[2025-03-13 13:26] LABS: Vitamin B12 458 pg/ml (239-931)
[2025-03-13 15:35] LABS: Folate 17.9 ng/ml (2.76-20)
== END ==
LOC: REG 10:10
PROVIDERS: ATTENDING PHYSICIAN Specialist; FAMILY PHYSICIAN Family Medicine
DX: F03.90 Unspecified dementia, unspecified severity, without behavioral disturbance, psychotic disturbance, mood disturbance, and anxiety (principal)
CPT/HCPCS: 36415; 80053; 82607; 82746; 84443; 85025; 85652

== ENCOUNTER → 2025-03-28 06:44 | Outpatient (REF) | payer MEDICARE, OTHER, SELFPAY | LOC: PAVMRI 06:44 | PROVIDERS: ATTENDING PHYSICIAN Specialist; FAMILY PHYSICIAN Family Medicine | DX: F03.90 Unspecified dementia, unspecified severity, without behavioral disturbance, psychotic disturbance, mood disturbance, and anxiety (principal) | CPT/HCPCS: 70551 ==